=== PATIENT | female | born 2000 | race Caucasian/White ===

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

== ENCOUNTER 2022-10-28 14:06 | Emergency (ER) | payer OTHER ==
[~2022-10-28] VITALS: Ht 165.1 cm; Wt 52.2 kg
[2022-10-28] MEDS ORDERED: CEPHALEXIN500 M1 PO (15:36)
[2022-10-28] MEDS ORDERED: IBU600 MG PO (15:36)
[2022-10-28 15:58] VITALS: BP 120/75
== END 2022-10-28 15:59 | disposition home or self-care (01) ==
LOC: ED 14:06
DX: S62.660A Nondisplaced fracture of distal phalanx of right index finger, initial encounter for closed fracture (principal); W23.0XXA Caught, crushed, jammed, or pinched between moving objects, initial encounter
CPT/HCPCS: 73140; 99283 25